=== PATIENT | male | born 1995 ===

== ENCOUNTER 2018-10-04 18:09 | Emergency (ER) | payer SELFPAY ==
--- NOTE | 2018-10-04 19:22 | C.PDOC ---
History Of Present Illness 23 year old male with no PMHx presents to the ER with a complaint of left chest wall pain radiating to the left upper back. Patient states the pain is sharp and worsens with movement and deep inspiration. He reports the symptoms have been ongoing for the past few years but has not seen a doctor for it. Denies tobacco use, Hx of PE/DVT, or recent travel. Time Seen by Provider: 10/04/18 18:32 Chief Complaint (Nursing): Chest Pain Past Medical History Reviewed: Historical Data, Nursing Documentation, Vital Signs Vital Signs: Last Vital Signs Temp 98.7 F 10/04/18 18:17 Pulse 65 10/04/18 18:17 Resp 17 10/04/18 18:17 BP 104/77 10/04/18 18:45 Pulse Ox 100 10/04/18 18:17 - Medical History PMH: No Chronic Diseases Surgical History: No Surg Hx Family History: States: Unknown Family Hx - Social History Hx Tobacco Use: No Hx Alcohol Use: No Hx Substance Use: No - Immunization History Hx Tetanus Toxoid Vaccination: Yes Hx Influenza Vaccination: No Hx Pneumococcal Vaccination: No Review Of Systems Except As Marked, All Systems Reviewed And Found Negative. Cardiovascular: Positive for: Chest Pain Physical Exam - Physical Exam Appears: Non-toxic Skin: Normal Color, Warm, Dry Head: Atraumatic, Normacephalic Eye(s): bilateral: Normal Inspection Oral Mucosa: Moist Neck: Normal, Supple Chest: Symmetrical, Tenderness (Reproducible to left side) Cardiovascular: Rhythm Regular Respiratory: Normal Breath Sounds, No Rales, No Rhonchi, No Wheezing Gastrointestinal/Abdominal: Soft, No Tenderness Back: No Vertebral Tenderness, Other (Reproducible tenderness to left infrascapular area) Extremity: Normal ROM (x4) Neurological/Psych: Oriented x3, Normal Speech Gait: Steady ED Course And Treatment ECG: Interpreted By Me, Viewed By Me ECG Rhythm: Sinus Rhythm ECG Interpretation: Normal Interpretation Of ECG: J point ST segment elevation in v2 Rate From EC O2 Sat by Pulse Oximetry: 100 (Room air) Pulse Ox Interpretation: Normal Medical Decision Making Medical Decision Making: Assessment: Chest wall pain CXR and EKG ordered. Motrin administered. cxr - preliminary reading nad Disposition Counseled Patient/Family Regarding: Studies Performed, Diagnosis, Need For Followup, Rx Given - Disposition Referrals: [facility] [Outside] Disposition: HOME/ ROUTINE Disposition Time: 19:41 Condition: STABLE Additional Instructions: follow up with medical clinic within 2 days call to make an appointment take medication as prescribed for pain return to ER if symptoms worsens or progress Prescriptions: Naproxen [Naprosyn] 500 mg PO BID PRN #16 tab PRN Reason: Pain, Moderate (4-7) Instructions: Costochondritis (DC) Forms: Gen Discharge Inst [place]e, [facility] ([place]e) - Clinical Impression Clinical Impression: Chest wall pain - Scribe Statement The provider has reviewed the documentation as recorded by the Scribjose Edler All medical record entries made by the Kristinaibjose were at my direction and personally dictated by me. I have reviewed the chart and agree that the record accurately reflects my personal performance of the history, physical exam, medical decision making, and the department course for this patient. I have also personally directed, reviewed, and agree with the discharge instructions and disposition.
[2018-10-04 19:58] VITALS: BP 128/74; PULSE 60; RESP 20; TEMP 99.2
[2018-10-04 21:06] VITALS: O2SAT 100
--- NOTE | 2018-10-05 10:00 | RAD ---
Date of service: 10/04/2018 HISTORY: Cough and chest pain COMPARISON: No prior. TECHNIQUE: Chest PA and lateral FINDINGS: LINES AND TUBES: None. LUNG AND PLEURA: There is pulmonary hyperinflation and peribronchial thickening with streaky opacities in the lungs. No focal consolidation. No pleural effusions or pneumothorax. HEART AND MEDIASTINUM: The heart is not enlarged. No aortic atherosclerotic calcification present. The hilar and mediastinal contours are within normal limits. SKELETAL STRUCTURES: The bony structures are within normal limits for the patient's age. VISUALIZED UPPER ABDOMEN: Normal. OTHER FINDINGS: None. IMPRESSION: Findings are most compatible with reactive small airway disease/viral/atypical pneumonitis. No lobar pneumonia.
--- NOTE | 2018-10-07 08:10 | CARD ---
APPROVED REPORT Date of service: 10/04/2018 EKG Measurement Heart [id number] <Conclusion> Normal sinus rhythm Minimal voltage criteria for LVH, may be normal variant Borderline ECG
== END 2018-10-04 19:59 | disposition home or self-care (01) ==
LOC: C.ER 18:09
DX: R07.89 Other chest pain (principal)